=== PATIENT | female | born 1970 | race Caucasian/White ===

== ENCOUNTER 2018-05-14 11:42 | Emergency (ER) | payer MEDICAID ==
--- NOTE | 2018-05-14 12:09 | EDPHY ---
H & P Time Seen by Provider: 05/14/18 12:08 HPI/ROS: Chief complaint. Foot injury HPI. 39-year-old female presents to the emergency department with left foot injury. She 1st hurt it when she had a misstep off a ladder in January of 2018. She rolled it and heard a crunch. She did not seek medical attention and it eventually got better. Last night she was playing with her dog and she fell and twisted her left foot. She has pain and swelling in the same place where it was injured in january. It hurts to walk. She has no ankle knee or hip pain. No other injuries. She shows me that the area involved is at base of 2nd, 3rd, 4th toes ROS Constitutional. no fever/chills, no weakness Eyes. no problems with vision ENT. no sore throat, no nasal drainage Cardiovascular. no chest pain Respiratory. no shortness of breath, no cough Abdominal. no abdominal pain, no nausea/vomiting, no diarrhea . no problems urinating MS. Pain and swelling to the dorsum of the left foot. Skin. no rash Lymph. no swollen glands Neuro. no headache, no dizziness, no difficulty walking or with speech Past Medical/Surgical History: Past medical history is significant for Crohn's disease, depression, sciatica Social History: Single, daily smoker, no alcohol Smoking Status: Light smoker Physical Exam: General Appearance: Alert pleasant well-developed female mild distress vital signs are stable Eyes: Pupils equal and round no pallor or injection. ENT, Mouth: Mucous membranes are moist. Respiratory: There are no retractions, lungs are clear to auscultation. Cardiovascular: Regular rate and rhythm. Gastrointestinal: Abdomen is soft and nontender, no masses, bowel sounds normal. Neurological: Awake and alert, sensory and motor exams grossly normal. Skin: Warm and dry, no rashes. Musculoskeletal: Neck is supple nontender. Extremities symmetrical, full range of motion. Dorsum of the left foot shows bruising at the MTP joints of toes 2, 3, 4. Some tenderness especially at the MTP joint of the 4th digit. No deformity. No surface trauma. Psychiatric: Patient is oriented X 3, there is no agitation. Constitutional: Initial Vital Signs Temperature (C) 37.1 C 05/14/18 11:48 Heart Rate 110 H 05/14/18 11:48 Respiratory Rate 18 05/14/18 11:48 Blood Pressure 139/96 H 05/14/18 11:48 O2 Sat (%) 94 05/14/18 11:48 O2 Delivery Mode Room Air Allergies/Adverse Reactions: aspirin [From Aspirin Regimen [place]/Calcium] Allergy (Severe, Verified 05/14/18 11:52) BLEEDING DUE TO CHRONES Sulfa (Sulfonamide Antibiotics) [Sulfa(Sulfonamide Antibiotics)] Allergy ( Verified 05/14/18 11:52) Vomiting Home Medications: Medication Instructions Recorded Dicyclomine HCl 10/06/09 Diazepam [Valium 5 MG (*)] 5 mg PO Q6-8PRN PRN #14 tab 05/15/12 Antidepressant 05/31/15 Diazepam [Valium] 5 mg PO BID PRN #10 tab 05/31/15 Flonase Nasal [place] 05/31/15 Hydrocodone/Acetaminophen [[place] 1 - 2 tab PO Q6H PRN #20 tab 05/31/15 5/325 (RX)] Diazepam [Valium] 5 mg PO TID PRN #15 tab 12/31/15 Escitalopram Oxalate 12/31/15 Hydrocodone/APAP 5/325 [[place] 1 each PO Q4-6PRN PRN #15 tab 12/31/15 5/325 (*)] Ranitidine HCl 12/31/15 ALBUTEROL SULFATE 05/14/18 Baclofen 05/14/18 Gabapentin 05/14/18 Hydrocodone/APAP 5/325 [[place] 1 each PO Q4-6PRN PRN #10 tab 05/14/18 5/325 (*)] IPRATROPIUM BROMIDE 05/14/18 MIRTAZAPINE 05/14/18 Prazosin HCl 05/14/18 buPROPion 05/14/18 Medical Decision Making - Diagnostics Imaging Results: X-ray reviewed by me shows a small bone chip adjacent to the left 4th metatarsal right at the head. Procedures: Patient is placed in postop shoe ED Course/Re-evaluation: On re-evaluation the patient is stable. She and I discussed imaging study results, treatment plan including criteria for return and importance of follow- up and further evaluation. She expresses understanding and agreement Differential Diagnosis: I considered fracture, dislocation, sprain Departure - Departure Disposition: Home, Routine, Self-Care Clinical Impression: Fracture of 4th metatarsal Qualifiers: Encounter type: initial encounter Fracture type: closed Fracture alignment: nondisplaced Laterality: left Qualified Code(s): S92.345A - Nondisplaced fracture of fourth metatarsal bone, left foot, initial encounter for closed fracture Condition: Good Instructions: Foot Fracture in Adults (ED) Additional Instructions: Ice and elevation next 24-48 hours Tylenol 1000 mg every 6 hr or hydrocodone as needed for pain Postop shoe for 1 week. For continuing pain and symptoms re-evaluation by your regular physician Referrals: Ramy Fulton MD [Primary Care Provider] - 5-7 days, if not improved Prescriptions: Hydrocodone/APAP 5/325 [[place] 5/325 (*)] 1 each PO Q4-6PRN PRN #10 tab PRN Reason: Pain, Moderate
[2018-05-14 13:01] VITALS: BP 126/96
== END 2018-05-14 13:01 | disposition home or self-care (01) ==
LOC: CED 11:42
DX: S92.342A Displaced fracture of fourth metatarsal bone, left foot, initial encounter for closed fracture (principal); X50.0XXA Overexertion from strenuous movement or load, initial encounter; Y93.K9 Activity, other involving animal care; Y99.8 Other external cause status; F17.200 Nicotine dependence, unspecified, uncomplicated
CPT/HCPCS: 73630-PO; L4386

== ENCOUNTER 2019-01-04 11:05 | Emergency (ER) | payer MEDICAID ==
[2019-01-04] MEDS ORDERED: IPRATROPIUM/ALBUTEROL 3 ML DEYVIAL IH ONE ×2 (11:48→12:27)
--- NOTE | 2019-01-04 12:13 | EDPHY ---
H & P Stated Complaint: congestion,cough for 6 weeks,pain and swelling right wrist from fall. Time Seen by Provider: 01/04/19 11:18 HPI/ROS: CHIEF COMPLAINT: Cough and right wrist pain History by patient HISTORY OF PRESENT ILLNESS: 48-year-old woman with a history of asthma/COPD who is a long-time smoker presents complaining of 2 weeks of persistent cough productive of green sputum and wheezing. Patient states that she had a temperature to 101 week ago. She was seen by her primary care physician at [facility] and started on a Z-Coy more than 2 weeks ago and she has finished these antibiotics but had little improvement in her cough. She denies any nausea or vomiting. She has chronic diarrhea related to underlying Crohn's disease for which she takes no medications. She has been on prednisone for her asthma in the past but not in many years. Patient also complains of right hand and wrist pain and swelling for the past 14 weeks. Patient states that she was playing with the dog and her hand got pushed back and immediately was painful and swollen on when she some her primary care physician they told her she had a sprain however the symptoms have never resolved and the swelling and pain persist. She says she takes gabapentin which seems to help a little bit with the pain. She has not had this wrist x-rayed. She has been able to do most of her activities of daily living but gets pain with it. She does sometimes get tingling in her middle fingers. REVIEW OF SYSTEMS: As in HPI, and all other systems reviewed and are negative Source: Patient - Personal History LMP (Females 10-55): Hysterectomy Current Tetanus Diphtheria and Acellular Pertussis (TDAP): Unsure - Medical/Surgical History Hx Asthma: Yes Hx Chronic Respiratory Disease: Yes Hx Diabetes: No Hx Cardiac Disease: No Hx Renal Disease: No Hx Cirrhosis: No Hx Alcoholism: No Hx HIV/AIDS: No Hx Splenectomy or Spleen Trauma: No Other PMH: Crohns,asthma,COPD. Depression. Hyst. Tonsils. Csection. SCIATICA - Social History Smoking Status: Light smoker - Physical Exam Exam: General Appearance: Alert, nontoxic-appearing, speaking full sentences to Head: normocephalic, atraumatic Eyes: Pupils equal and round, reactive to light, no pallor or injection. Mouth: Mucous membranes moist. Oropharynx clear Neck: No bony tenderness, full range of motion Respiratory: Normal, effort, lungs with diffuse scattered wheezes and rhonchi. Cardiovascular: Regular rate and rhythm. S1, S2, no murmurs, gallops or rubs appreciated Gastrointestinal: Abdomen is soft and nontender, no masses, bowel sounds normal. Back: No CVA tenderness, no bony tenderness Neurological: Awake, alert and oriented x 3, cranial nerves 2-12 intact, no pronator drift, normal gait, Skin: Warm and dry, no rashes. Musculoskeletal: Right hand positive swelling just distal to the wrist with mild tenderness over her carpal bones, no snuffbox tenderness, radial, median and ulnar nerve intact motor and sensory, full range of motion of wrist and all fingers but with some pain with flexion and extension of wrist and pronation and supination. Radial pulses 2+ and equal to the left, distal cap refills less than 2 sec. Lower Extremities: full range of motion, no edema, DP2+ bilat Psychiatric: Patient has normal affect, there is no agitation. Constitutional: Initial Vital Signs Temperature (C) 37.1 C 01/04/19 11:27 Heart Rate 86 01/04/19 11:27 Respiratory Rate 16 01/04/19 11:27 Blood Pressure 146/91 H 01/04/19 11:27 O2 Sat (%) 92 01/04/19 11:27 O2 Delivery Mode Room Air Allergies/Adverse Reactions: aspirin [From Aspirin Regimen [place]/Calcium] Allergy (Severe, Verified 01/04/19 11:22) BLEEDING DUE TO CHRONES Sulfa (Sulfonamide Antibiotics) [Sulfa(Sulfonamide Antibiotics)] Allergy ( Verified 01/04/19 11:22) Vomiting Home Medications: Medication Instructions Recorded Dicyclomine HCl 10/06/09 Diazepam [Valium] 5 mg PO BID PRN #10 tab 05/31/15 Flonase Nasal [place] 05/31/15 Diazepam [Valium] 5 mg PO TID PRN #15 tab 12/31/15 Escitalopram Oxalate 12/31/15 Ranitidine HCl 12/31/15 ALBUTEROL SULFATE 05/14/18 Baclofen 05/14/18 Gabapentin 05/14/18 IPRATROPIUM BROMIDE 05/14/18 MIRTAZAPINE 05/14/18 Prazosin HCl 05/14/18 buPROPion 05/14/18 Albuterol [Proventil Inhaler HFA 1 - 2 puffs IH Q4H #1 mdi 01/04/19 (*)] Prozac 20 MG (*) 01/04/19 predniSONE 20 mg PO DAILY #5 tablet 01/04/19 Medical Decision Making - Diagnostics Imaging Results: Imaging Impressions Chest X-Ray 01/04/19 12:00 Impression: 1. Bronchitis/airways disease. 2. No definite focal pneumonia. Wrist X-Ray 01/04/19 12:03 Impression: Nondisplaced scaphoid fracture Imaging: I viewed and interpreted images myself ED Course/Re-evaluation: 48-year-old woman presents with persistent cough with history of asthma and smoking. On exam patient is wheezing. Her oxygen saturation is low normal. She was given a DuoNeb in the ED with symptomatic improvement on re-examine however she continued to be persistently wheezy and therefore she is given a 2nd neb and a dose of prednisone. A chest x-ray was obtained. A right wrist x- ray was obtained. Chest x-ray showed no evidence of pneumonia. We will go ahead and treat her for a asthma/COPD exacerbation. Right wrist x-ray showed positive scaphoid fracture. Given that this is 14 weeks all the patient will need close follow- up with Hand surgery. I discussed the case with Dr. Cuello, hand surgeon agronomy professor who will have his office arrange follow-up for the patient. - Data Points Medications Given: Discontinued Medications Albuterol/Ipratropium (Duoneb) 3 ml IH EDNOW ONE Stop: 01/04/19 11:49 Last Admin: 01/04/19 11:53 Dose: 3 ml Albuterol/Ipratropium (Duoneb) 3 ml IH EDNOW ONE Stop: 01/04/19 12:28 Last Admin: 01/04/19 12:35 Dose: 3 ml Prednisone (Prednisone) 40 mg PO EDNOW ONE Stop: 01/04/19 12:28 Last Admin: 01/04/19 12:35 Dose: 40 mg Departure - Departure Disposition: Home, Routine, Self-Care Clinical Impression: Exacerbation of asthma Qualifiers: Asthma severity: moderate Asthma persistence: unspecified Qualified Code(s): J45.901 - Unspecified asthma with (acute) exacerbation Scaphoid fracture, wrist, closed Qualifiers: Encounter type: initial encounter Scaphoid bone location: middle third Fracture alignment: nondisplaced Laterality: right Qualified Code(s): S62.024A - Nondisplaced fracture of middle third of navicular [scaphoid] bone of right wrist, initial encounter for closed fracture Condition: Fair Instructions: COPD (Chronic Obstructive Pulmonary Disease) (ED), Scaphoid Fracture (ED) Additional Instructions: You were seen by Dr. Twila Arrington today. We are treating you for an asthma exacerbation today. Please take prednisone once daily for the next 5 days starting tomorrow. Use her albuterol inhaler as needed. Stop smoking! Please follow-up with your primary care physician at [facility] for re-evaluation after he finished the prednisone. You have a broken scaphoid (navicular) bone in her right wrist. Please follow up with Dr. Cuello, hand surgeon, as soon as possible to have this repaired. You should be getting a call from his office but please call them if you do not hear from them in 2 days. Return for any worsening or new concerns. Referrals: Ramy Fulton MD [Primary Care Provider] - As per Instructions Devin Hernandez MD [Medical Doctor] - As per Instructions Prescriptions: Albuterol [Proventil Inhaler HFA (*)] 1 - 2 puffs IH Q4H #1 mdi predniSONE 20 mg PO DAILY #5 tablet
[2019-01-04] MEDS ORDERED: predniSONE 20 MG TAB PO ONE (12:27)
[2019-01-04 13:22] VITALS: BP 142/88
== END 2019-01-04 13:20 | disposition home or self-care (01) ==
LOC: CED 11:05
DX: S62.024A Nondisplaced fracture of middle third of navicular [scaphoid] bone of right wrist, initial encounter for closed fracture (principal); J45.901 Unspecified asthma with (acute) exacerbation; J44.9 Chronic obstructive pulmonary disease, unspecified; K50.90 Crohn's disease, unspecified, without complications; F17.200 Nicotine dependence, unspecified, uncomplicated; X50.9XXA Other and unspecified overexertion or strenuous movements or postures, initial encounter; Y93.K9 Activity, other involving animal care; Z90.710 Acquired absence of both cervix and uterus
CPT/HCPCS: 71046-PO; 73110-PO; 99284-ER; J7512; L3807-ER

== ENCOUNTER → 2019-01-27 | Outpatient (CLI) | payer MEDICAID | LOC: FIMAGING 15:45 | PROVIDERS: ATTEND Orthopaedic Surgery Hand Surgery | DX: M25.531 Pain in right wrist (principal); S62.001A Unspecified fracture of navicular [scaphoid] bone of right wrist, initial encounter for closed fracture ==